=== PATIENT | female | born 1945 | race Caucasian/White ===

== ENCOUNTER 2019-06-13 13:26 | Outpatient (CLI) | payer MEDICARE, OTHER | END 2019-06-13 23:59 | disposition home or self-care (01) | LOC: CFH 13:26 | PROVIDERS: ATTEND Internal Medicine | DX: J43.9 Emphysema, unspecified (principal); J84.89 Other specified interstitial pulmonary diseases; M51.34 Other intervertebral disc degeneration, thoracic region; I70.0 Atherosclerosis of aorta; I25.10 Atherosclerotic heart disease of native coronary artery without angina pectoris; J96.11 Chronic respiratory failure with hypoxia | CPT/HCPCS: 71250 ==